=== PATIENT | female | born 1975 | race Caucasian/White ===

== ENCOUNTER 2018-10-10 09:15 | Emergency (ER) | payer OTHER ==
--- NOTE | 2018-10-10 09:26 | EDPHY ---
H & P Stated Complaint: rice's increasing over last 3 weeks Time Seen by Provider: 10/10/18 09:24 HPI/ROS: HPI: This is a 43-year-old female who presents with Chief Complaint: Headaches increasing over the last 3 weeks Location: Frontal, bilateral temporal, base of neck Quality: Aching pain Duration: 3 weeks Signs and Symptoms: no fever, no nausea, no vomiting, no photophobia, no noise sensitivity, no neck stiffness, no ear pain, no tinnitus, no nasal congestion, no sinus pressure, no weakness, no radiation, no aura Timing: Acute, intermittent episodes Severity: Moderate Context: Patient presents with 3 week history of headaches that are described as dull, aching accompanied by some lightheadedness. She reports that the headaches are "moving around." She describes the headache can occur in the frontal portion of her head and then behind her right eye and then bilateral temples bandlike and then at the base of her neck. She reports that if she moves around or put her head down she can get dizzy. Headache is positional. Five months ago she moved to the area from [place]. She denies any history of seasonal allergies. She denies fever, vision changes, nausea, vomiting, upper respiratory symptoms. No thunderclap symptoms. Not worse headache of life. Modifying Factors: [id number] medications without relief Comment: ROS: A comprehensive 10 system review of systems is otherwise negative aside from elements mentioned in the history of present illness. MEDICAL/SURGICAL/SOCIAL HISTORY: Medical history: Bipolar depression Surgical history: Denies Social history: Current every day smoker. . Family history noncontributory. CONSTITUTIONAL: Well-developed, well-nourished, extremely well-appearing middle -aged white female, awake and alert, no obvious distress HEENT: Atraumatic and normocephalic, PERRL, EOMI. Nares patent; no rhinorrhea; no nasal mucosal edema. Tympanic membranes clear. Oropharynx clear, no exudate and moist pink mucosa. Airway patent. No lymphadenopathy. No meningismus. No carotid bruits appreciated. Cardiovascular: Normal S1/S2, regular rate, regular rhythm, without murmur rub or gallop. PULMONARY/CHEST: Symmetrical and nontender. Clear to auscultation bilaterally. Good air movement. No accessory muscle usage. ABDOMEN: Soft, nondistended, nontender, no rebound, no guarding, no peritoneal signs, no masses or organomegaly. No CVAT. EXTREMITIES: 2/2 pulses, strength 5/5, no deformities, no clubbing, no cyanosis or edema. NEUROLOGICAL: no focal neuro deficits. GCS 15. Cranial nerves 2-12 grossly intact. No reproduction of dizziness with [place]-Hallpike maneuver. Normal Romberg testing. SKIN: Warm and dry, no erythema. no rash. Good capillary refill. Source: Patient Exam Limitations: No limitations - Personal History Current Tetanus Diphtheria and Acellular Pertussis (TDAP): Unsure - Medical/Surgical History Hx Asthma: No Hx Chronic Respiratory Disease: No Hx Diabetes: No Hx Cardiac Disease: No Hx Renal Disease: No Hx Cirrhosis: No Hx Alcoholism: No Hx HIV/AIDS: No Hx Splenectomy or Spleen Trauma: No Other PMH: denies - Social History Smoking Status: Current every day smoker Constitutional: Initial Vital Signs Temperature (C) 36.5 C 10/10/18 09:18 Heart Rate 72 10/10/18 09:18 Respiratory Rate 18 10/10/18 09:18 Blood Pressure 128/93 H 10/10/18 09:18 O2 Sat (%) 99 10/10/18 09:18 O2 Delivery Mode Room Air Allergies/Adverse Reactions: No Known Allergies Allergy (Unverified 10/10/18 09:18) Home Medications: Medication Instructions Recorded Acet/Caffeine/Buta Fioricet 1 each PO Q6 PRN #12 tab 10/10/18 [Fioricet (*)] Cetirizine [ZyrTEC 10 mg (*)] 10 mg PO DAILY #14 tab 10/10/18 Fluticasone Nasal [Flonase Nasal 1 sprays NASAL DAILY #1 mdi 10/10/18 [place] (RX)] Latuda 10/10/18 Valproic Acid 10/10/18 Medical Decision Making ED Course/Re-evaluation: Vital signs reviewed and stable upon arrival. Due to length of headaches and undetermined etiology; head CT scan ordered Patient is not exhibiting signs of infectious causes of headaches She is currently stable and without neurological deficits. 1000: Called by radiologist, Dr. López, who reports head CT scan shows no acute intracranial process, no sinusitis. Headache etiology includes tension verses allergy. Diagnose with new daily persistent headache Will start patient on Flonase, antihistamines, Fioricet p.r.n. Has an appointment with primary care provider, Dr. Tolentino, on Thursday and referral Neurology given No signs of CVA, TIA, sinusitis, migraine headaches, meningitis, OM I doubt low-pressure headache This patient was seen under the supervision of my primary supervising physician. I evaluated care for this patient independently. Differential Diagnosis: Headache including but not limited to subarachnoid hemorrhage, migraine headache , tension headache and infectious causes such as meningitis, pharyngitis and sinusitis. Departure - Departure Disposition: Home, Routine, Self-Care Clinical Impression: Headache, new daily persistent (NDPH) Condition: Good Instructions: Acute Headache (ED) Additional Instructions: Consume a minimum of 8-10 glasses of water or electrolyte fluid replacement drinks that include Gatorade, Powerade, Pedialyte. Take Tylenol 650 mg every 4 hours and/or Ibuprofen 600 mg every 8 hours with food as needed for pain. Take Fioricet every 6 hr as needed for headache not relieved by Tylenol or ibuprofen. Start taking [id number] Claritin or Mary or Zyrtec daily and Flonase daily. Keep follow-up appointment with Dr. Suarez on Thursday. Follow-up with Neurology in the next 1-2 weeks if headaches continue. Referrals: Daija Suarez MD [Primary Care Provider] - As per Instructions Jaime Kan MD [Medical Doctor] - As per Instructions Prescriptions: Acet/Caffeine/Buta Fioricet [Fioricet (*)] 1 each PO Q6 PRN #12 tab PRN Reason: Headache Cetirizine [ZyrTEC 10 mg (*)] 10 mg PO DAILY #14 tab Fluticasone Nasal [Flonase Nasal [place] (RX)] 1 sprays NASAL DAILY #1 mdi
[2018-10-10 10:25] VITALS: BP 119/71
== END 2018-10-10 10:24 | disposition home or self-care (01) ==
DX: R51 Headache (principal)